=== PATIENT | male | born 1940 | race African-American/Black ===

== ENCOUNTER 2017-01-23 18:16 | Emergency (ER) | payer OTHER ==
[~2017-01-23] VITALS: Ht 165.1 cm; Wt 58.1 kg
[2017-01-23] MEDS ORDERED: DEXTROSE 50% SYRINGE 50 ML IV ONE (18:39)
[2017-01-23] MEDS ORDERED: DEXTROSE (50%) 50ML SYRG IV ONE (19:00)
[2017-01-23 19:23] LABS: Basophils # (auto) 0.1 uL; Basophils % (auto) 0.5 % (0.0-2.0); Eosinophils # (auto) 0.2 uL; Eosinophils % (auto) 1.7 % (0.0-7.0); Hematocrit 46.9 % (41.0-53.0); Hemoglobin 15.4 g/dL (13.5-17.5); Lymphocytes # (auto) 2.2 uL; Lymphocytes % (auto) 17.6 % (10.0-50.0); Mean Corpuscular Hemoglobin 30.5 pg (28.0-32.0); Mean Corpuscular Hgb Conc. 32.8 g/dL (32.0-36.0); Mean Platelet Volume 8.3 fL (7.4-10.4); Monocytes # (auto) 0.5 uL; Monocytes % (auto) 4.3 % (0.0-12.0); Neutrophils # (auto) 9.5 uL; Neutrophils % (auto) 75.9 % (37.0-80.0); Platelet Count (auto) 261 10^3/uL (140-450); Red Cell Distribution Width 14.1 % (11.6-16.0); White Blood Cell 12.5 10^3/uL (4.4-10.8)
[2017-01-23 19:48] LABS: Albumin 3.4 g/dL (3.4-5.0); Alkaline Phosphatase 64 U/L (45-117); Anion Gap 10 (5-15); Aspartate Aminotransferase 12 U/L (15-37); BUN/Creatinine Ratio 13.7; Bilirubin, Total 0.9 mg/dL (0.2-1.0); Blood Urea Nitrogen 16 mg/dL (7-18); Calcium 9.9 mg/dL (8.5-10.1); Carbon Dioxide 25 mmol/L (21-32); Chloride 102 mmol/L (98-107); GFR African American 78 mL/min; GFR Non-African American 65 mL/min; Glucose 351 mg/dL (74-106); Magnesium 2.5 mg/dL (1.6-2.6); Potassium 4.5 mmol/L (3.5-5.1); Sodium 137 mmol/L (136-145); Total Protein 7.5 g/dL (6.4-8.2)
[2017-01-23] MEDS ORDERED: CYCLOBENZAPRINE HCL 10 MG TAB PO ONE (20:00)
[2017-01-23] MEDS ORDERED: SODIUM CHLORIDE 0.9% 1,000 ML IV ONE (20:00)
[2017-01-23] MEDS ORDERED: IOHEXOL 300 MG/ML 100ML BOTTLE IJ ONE (20:31)
[2017-01-23] MEDS ORDERED: MORPHINE SULFATE 4 MG/ML SYRG IV ONE (22:30)
[2017-01-24 00:39] LABS: Urine Bilirubin Negative (Negative); Urine Blood Negative /uL (Negative); Urine Color Yellow (Yellow); Urine Ketone Negative (Negative); Urine Nitrite Negative (Negative); Urine RBC 1 /hpf (0 - 3); Urine Squamous Epithelial Cell FEW /hpf (<5); Urine Urobilinogen Normal (Negative); Urine pH 6.5 (5.0-8.0)
[2017-01-24 00:47] LABS: Urine Glucose 2+ mg/dL (Normal)
[2017-01-24 02:42] VITALS: BP 144/85
== END 2017-01-24 05:01 | disposition home or self-care (01) ==
LOC: ER 18:16 → EDBD 18:16 → ER 01-24 05:01
DX: R10.32 Left lower quadrant pain (principal); K21.9 Gastro-esophageal reflux disease without esophagitis; I10 Essential (primary) hypertension; E78.5 Hyperlipidemia, unspecified; I25.2 Old myocardial infarction; Z87.891 Personal history of nicotine dependence
CPT/HCPCS: 36415; 74177; 80053; 81001; 82962; 83735; 84484; 85025; 93005; 96361; 96374; 96375; 99285; J2270; J7030; J7042